=== PATIENT | female | born 1965 | race Caucasian/White ===

== ENCOUNTER 2022-01-17 03:48 | Emergency (ER) | payer OTHER ==
[~2022-01-17] VITALS: Ht 162.6 cm; Wt 59.0 kg
[~2022-01-17 03:48] MED LIST: DIVA500T2 PO; HALO5TAB PO; LEVO50TA8 PO; OMEP20CA15 PO; QUET25TA PO
--- NOTE | 2022-01-17 04:12 | NUR ---
Dr. Thomas at bedside for MSE.
[2022-01-17] MEDS ORDERED: KETOROLAC TROMETHAMINE 30 MG INJ IVP ONE (04:30)
[2022-01-17] MEDS ORDERED: IV NORMAL SALINE 1000 ML BAG IV ONE (04:30)
[2022-01-17] MEDS ORDERED: KETOROLAC TROMETHAMINE 30 MG INJ ONE (04:37)
--- NOTE | 2022-01-17 04:52 | NUR ---
Xray at bedside.
[2022-01-17 05:25] LABS: CARBON DIOXIDE 26 mmol/L (21-32); CHLORIDE 104 mmol/L (98-107); CREATININE 0.7 mg/dL (0.6-1.3); GLUCOSE 164 mg/dL (74-106); POTASSIUM 3.1 mmol/L (3.5-5.1); UREA NITROGEN, BLOOD 19 mg/dL (7-18)
[2022-01-17 05:31] LABS: ALANINE AMINOTRANSFERASE 20 U/L (14-59); ALKALINE PHOSPHATASE 93 U/L (50-136); ASPARTATE AMINOTRANSFERASE 19 U/L (15-37); BILIRUBIN,DIRECT < 0.1 mg/dL (0.0-0.2); BILIRUBIN,TOTAL 0.2 mg/dL (0.2-1.0); TOTAL PROTEIN, SERUM 7.4 g/dL (6.4-8.2)
[2022-01-17 05:40] LABS: HEMATOCRIT 27.9 % (31.2-41.9); MEAN CORPUSCULAR HEMOGLOBIN 25.8 uug (24.7-32.8); MEAN CORPUSCULAR VOLUME 79.3 fL (75.5-95.3); PLATELET COUNT (AUTO) 261 K/uL (179-408)
[2022-01-17] MEDS ORDERED: POTASSIUM CHLORIDE 20 MEQ TAB.PRT.SR PO ONE (06:00)
[2022-01-17] MEDS ORDERED: POTASSIUM CHLORIDE 20 MEQ TAB.PRT.SR ONE (06:25)
[2022-01-17] MEDS ORDERED: PIPERACILLIN/TAZOBACTAM/D5W 50 ML IV ONE (06:25)
[2022-01-17] MEDS ORDERED: VANCOMYCIN 1G/D5W 200 ML PIGGYBACK IV ONE (06:30)
[2022-01-17] MEDS ORDERED: PIPERACILLIN SODIUM/TAZOBACTAM 3.375 G in IV DEXTROSE 5% 50 ML IV ONE (06:30)
[2022-01-17] MEDS ORDERED: VANCOMYCIN IV 200 ML ONE (06:44)
--- NOTE | 2022-01-17 07:11 | NUR ---
Report given to Elodia swain.
--- NOTE | 2022-01-17 07:12 | NUR ---
[employer] assumes care: 1st contact with patient, she is asleep, easily arousable, respiration:easy, moving all extremities, pending transfer information from patient's insurance. Patient is for transfer to [facility] per previous nurse Krishnamurthy's report.
--- NOTE | 2022-01-17 08:01 | NUR ---
ER registration/admitting staff Esdras said that he is working on this patient's transfer per patient's insurance.
--- NOTE | 2022-01-17 09:12 | NUR ---
Our ER registration/admitting staff Esdras said that he will fax the clinical information to [facility] now.
--- NOTE | 2022-01-17 09:54 | NUR ---
Patient is resting comfortably on gurney with eyes closed, still waiting for accepting [facility] nurse and assigned medical-surgical bed@this time.
--- NOTE | 2022-01-17 11:26 | NUR ---
Patient ambulated to bathroom with one-person assist. She voided. NPO maintained.
--- NOTE | 2022-01-17 13:19 | NUR ---
[facility] unit [facility] is here. EMT Gilbert Akins accepted SBAR.
== END 2022-01-17 13:36 | disposition short-term general hospital (02) ==
LOC: ER 04:00
DX: I96 Gangrene, not elsewhere classified (principal); R93.89 Abnormal findings on diagnostic imaging of other specified body structures; G40.909 Epilepsy, unspecified, not intractable, without status epilepticus; F31.9 Bipolar disorder, unspecified; F15.10 Other stimulant abuse, uncomplicated; Z59.00 Homelessness unspecified; Z79.899 Other long term (current) drug therapy; R05.9 Cough, unspecified; Z20.822 Contact with and (suspected) exposure to COVID-19; E87.6 Hypokalemia; R79.89 Other specified abnormal findings of blood chemistry
CPT/HCPCS: 99285; 96365; 93926; 93971; 71045; 96361; 96367; 96375; 87426; 80076; 80048; 82550; 85025; 85651; 87400; 87040; 36415; 73630; 83605 ×2; J1885; J2543; J3370; J7040; A4663